=== PATIENT | female | born 1985 | race Caucasian/White ===

== ENCOUNTER 2017-12-25 22:01 | Emergency (ER) | payer OTHER ==
[2017-12-25 22:25] VITALS: BP 121/82
--- NOTE | 2017-12-25 22:28 | ED Physician Documentation ---
Female Urogenital Problems - HISTORIAN Historian: patient - HPI Chief Complaint: Female Urogenital Problems Onset: days ago (Saturday) Severity: moderate - Vaginal Bleeding LNMP (Last Known Menstrual Period): 12/25/17 - Associated Symptoms Urinary Symptoms: frequent urination, discomfort w/ urination, burning w/ urination, urgency w/ urination, pain w/ urination Discharge: denies: vaginal discharge - ROS CONST: fever, chills GI/: denies: nausea, vomiting, diarrhea CVS/RESP: none EYES/ENT: none NEURO/PSYCH: none MS/SKIN/LYMPH: none - PAST HX Past History: none Other History: none Surgeries/Procedures: none Allergies/Adverse Reactions: Allergies Allergy/AdvReac Type Severity Reaction Status Date / Time No Known Allergies Allergy Unverified 12/25/17 22:25 Home Medications: Ambulatory Orders Medication Instructions Recorded Ciprofloxacin HCl [Cipro] 500 mg PO BID #14 tablet 12/25/17 Phenazopyridine HCl [Pyridium] 200 mg PO TID #6 tablet 12/25/17 - SOCIAL HX Smoking History: non-smoker - FAMILY HX Family History: denies: none - REVIEWED ASSESSMENTS Nursing Assessment Reviewed: Yes Vitals Reviewed: Yes Female Urogenital Problems - EXAM General Appearance: no acute distress, alert Respiratory: no resp. distress, breath sounds nml CVS: reg rate & rhythm, heart sounds normal, equal pulses, no murmur, no gallop, PMI nml, no JVD, no friction rub, 24 Abdomen: soft, non-tender, no organomegaly, no distention, nml bowel sounds Extremities: non-tender, normal range of motion, no evidence of injury, no edema, J, [employer] Neuro: oriented X3, motor nml, sensation nml, mood/affect nml Discharge Clincal Impression: UTI (urinary tract infection) Qualifiers: Urinary tract infection type: acute cystitis Hematuria presence: with hematuria Qualified Code(s): N30.01 - Acute cystitis with hematuria Prescriptions: Ciprofloxacin HCl [Cipro] 500 mg PO BID #14 tablet Phenazopyridine HCl [Pyridium] 200 mg PO TID #6 tablet Referrals: Primary Doctor,No [Primary Care Provider] - 2 Days Additional Instructions: user support specialist your prescription and start it today Drink at least 64 oz of water daily. Avoid caffeinated beverages Cranberry juice will help with symptoms. Tylenol every 4 hours as needed for pain/fever or ibuprofen every 6 hours as needed for pain and fever See your primary care provider for a repeat UA 48 hours after completing your antibiotic. Condition: Stable Disposition: 01 HOME, SELF-CARE Decision to Admit: NO Decision Time: 22:28
[2017-12-25] MEDS: CIPROFLOXACIN HCL 500 MG TABLET PO ONE (22:36)
== END 2017-12-25 22:35 | disposition home or self-care (01) ==
LOC: ED 22:01
DX: N30.01 Acute cystitis with hematuria (principal)
CPT/HCPCS: 99283